=== PATIENT | male | born 1955 | race African-American/Black ===

== ENCOUNTER 2017-07-11 05:14 | Inpatient (IN) ==
--- NOTE | 2017-07-05 13:42 | Order Completion Report ---
See report scanned to EMR
[2017-07-05 13:45] LABS: Basophils # 0.1 10*3/uL (0.0-0.2); Eosinophils # 0.3 10*3/uL (0.0-0.87); Hemoglobin 14.9 GM/DL (14.0-18.0); Immature Granulocytes % 0.3 %; Immature Granulocytes Absolute 0.02 #; Lymphocytes # 1.6 10*3/uL (1.4-4.0); Lymphocytes % 24.8 % (21.2-54.2); Mean Corpuscular HGB Conc 33.1 GM/DL (32-36); Mean Corpuscular Hemoglobin 31 PG (27-34); Mean Corpuscular Volume 93.4 FL (87-102); Mean Platelet Volume 10.5 FL (9.6-12.0); Monocytes # 0.7 10*3/uL (0.11-0.8); Monocytes % 10.5 % (1.7-12.7); Neutrophils # 3.8 10*3/uL (1.4-7.4); Neutrophils % 59.4 % (38.7-73.9); Platelet Count 141 T/CUMM (130-400); Red Blood Count 4.82 MC/CUMM (3.8-5.5); Red Cell Distribution Width 15.2 % (9.3-17.3); White Blood Count 6.3 T/CUMM (4-12)
[2017-07-05 14:34] LABS: Calcium 8.2 MG/DL (8.5-10.1); Osmolality,Calculated 287.4 MOS/KG (273-304); Potassium 4.2 MMOL/L (3.5-5.1)
[2017-07-11] MEDS ORDERED: SODIUM PHOSPHATE ENEMA 133 ML BOTTLE RECTAL ONE ×2 (05:57→05:59)
[2017-07-11] MEDS ORDERED: cefTRIAXone 1,000 MG VIAL ONE (05:58)
[2017-07-11] MEDS ORDERED: ALVIMOPAN 12 MG CAPSULE ONE (05:58)
[2017-07-11] MEDS ORDERED: ALVIMOPAN 12 MG CAPSULE PO ONE (06:00)
[2017-07-11 06:22] LABS: Hematocrit 47.4 VOL% (42.0-52.0)
--- NOTE | 2017-07-11 07:51 | XRay Report ---
Chest, 2 views History is preop respiratory screening with positive TB skin test The heart and vessels are enlarged. Mild hilar fullness is the appearance of vasculature There is mild thickening of fissures There are some minimal curly B lines and interstitial prominence in the lung bases. No confluent infiltrate is seen. There is upper lobe vascular prominence Impression: Cardiomegaly with suspected minimal interstitial edema PROCEDURE INTERPRETED AT [facility] DEPARTMENT OF RADIOLOGY Final Report Signed by: Dr. Rachelle Pizarro
[2017-07-11 08:49] LABS: Apearance,Urine Slightly Hazy (Clear); Bilirubin,Urine Negative (Negative); Blood, Urine Small mg/dL (Negative); Glucose,Urine (UA) 50 mg/dL (Negative); Ketones,Urine Negative (Negative); Mucus,Urine Occasional /LPF (Occasional); Nitrite,Urine Negative (Negative); Protein,Urine 100 MG/DL; RBC,Urine 4 /HPF (0-4); Squamous Epithelial Cell,Urine Occasional /HPF (0-10); Urine Color Yellow (Yellow); Urine Specific Gravity 1.008 (1.001-1.035); Urine Urobilinogen < 2.0 EU/DL (0.2-1.0); WBC,Urine 2 /HPF (0-6)
[2017-07-11] MEDS ORDERED: ONDANSETRON 4 MG/2 ML VIAL IV PRN (09:00)
[2017-07-11] MEDS ORDERED: ACETAMINOPHEN 325 MG TABLET PO PRN (09:00)
[2017-07-11] MEDS ORDERED: BISACODYL 10 MG SUPP RECTAL PRN (09:00)
[2017-07-11 10:43] LABS: Basophils % 0.7 % (0.0-0.8); Eosinophils # 0.3 10*3/uL (0.0-0.87); Eosinophils % 5.1 % (0.00-10.9); Hematocrit 47.5 VOL% (42.0-52.0); Hemoglobin 15.9 GM/DL (14.0-18.0); Immature Granulocytes % 0.4 %; Immature Granulocytes Absolute 0.02 #; Lymphocytes # 1.5 10*3/uL (1.4-4.0); Lymphocytes % 27.3 % (21.2-54.2); Mean Corpuscular HGB Conc 33.5 GM/DL (32-36); Mean Corpuscular Hemoglobin 30 PG (27-34); Mean Corpuscular Volume 90.6 FL (87-102); Mean Platelet Volume 12.3 FL (9.6-12.0); Monocytes # 0.7 10*3/uL (0.11-0.8); Monocytes % 12.7 % (1.7-12.7); Neutrophils # 2.9 10*3/uL (1.4-7.4); Neutrophils % 53.8 % (38.7-73.9); Platelet Count 117 T/CUMM (130-400); Red Blood Count 5.24 MC/CUMM (3.8-5.5); Red Cell Distribution Width 14.6 % (9.3-17.3); White Blood Count 5.5 T/CUMM (4-12)
[2017-07-11] MEDS ORDERED: DEXAMETHASONE 10 MG/1 ML VIAL ONE (12:52)
[2017-07-11] MEDS ORDERED: PROPOFOL 200 MG/20 ML VIAL IV ONE (12:52)
[2017-07-11] MEDS ORDERED: ONDANSETRON 4 MG/2 ML VIAL ONE (12:52)
[2017-07-11] MEDS ORDERED: MIDAZOLAM 2 MG/2 ML VIAL ONE (12:52)
[2017-07-11] MEDS ORDERED: fentaNYL 100 MCG/2 ML VIAL ONE ×2 (12:52)
[2017-07-11] MEDS ORDERED: GLYCOPYRROLATE 0.4 MG/2 ML VIAL ONE (12:52)
--- NOTE | 2017-07-11 12:52 | Operative Note ---
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 We discussed options and he is elected undergo a robotic assisted radical prostatectomy. This procedure was explained at length and in detail. Risks, complications, outcomes, sequelae, prognosis and alternative therapy was discussed. Patient understood this and agreed to proceed. Patient is brought to the operative suite given a general endotracheal anesthetic after placing on the supine operating table. He is then secured to the table with the securing pads. The left arm with the fistula is protected and a O2 sat monitors placed on that arm also. Patient's then prepared and draped in the usual sterile manner. 22 Israeli Barber was inserted in the bladder and left to gravity. About 20 cc in his bladder. Patient was then placed in Trendelenburg position. A formal timeout performed. The robotic ports were marked in left upper quadrant incision is created for the mini gel port. This is carried down through the fascia through the rectus and in the peritoneal cavity. There was some adhesions superior to this incision but there was some small adhesions below and these were taken down sharply. The mini gel port was placed in the wound and a pneumoperitoneum was obtained. Camera was inserted through the GelPort and the intra-abdominal contents were examined. Luckily there was minimal adhesions to the abdominal wall in the pelvis but the left colon is somewhat adherent and loop and I had to take that down. Remainder the ports were put in direct vision. Robot was then docked. I then broke scrub and went to the console. [place] bipolar forceps in the left and monopolar scissors in the right the left colon is then dissected away from its adhesions along with the rectosigmoid. Posterior approach is performed. The cul-de-sac there was some adhesions and they were taken down but an anterior incision is created and the vas deferens were then dissected out then ligated with a Hemoclip and divided. Seminal vesicles were adherent as I suspected but they were dissected out. A window in Denonvilliers's fascia was created. Attention was then directed to creating the bladder flap. Median umbilical ligaments were retracted medially and incision created lateral to this down through the internal ring. The ligaments were then divided and the bladder flap was dropped down in the pelvis. This was done with sharp and blunt dissection the pelvic fascia was incised bilaterally. Puboprostatics were incised. Dorsal vein was controlled with a #1 Vicryl. Attention was directed to the bladder neck. With bunching of the tissue in the midline and light traction on the Barber the junction was identified. This was then incised with cautery initially. Sharp dissection was used to dissect this tissue was difficult at best because of his renal failure. But the bladder was entered at the bladder neck bladder was drained. Posterior bladder neck was incised and the prostate was pulled up with fourth arm. Attempted to create a left nerve sparing as there is cancer on the right but it was too adherent and there is too many blood vessels that wanted to bleed mainly because of his renal failure so I abandoned the nerve sparing. The pedicles were intermittently taken down hemoclipped and divided. Cautery used to dissect out remaining posterior lateral pedicles and the prostate was then sequentially freed up using sharp and blunt dissection. Very adherent posteriorly and there was multiple small vessels that had to be ligated with bipolar cautery. After getting down through most of the prostate to the apex posteriorly attention was directed anteriorly. The dorsal vein was then divided and there was a lot of apical blood vessels which was not surprised. This was then divided cauterized urethra was incised anteriorly the Barber catheter was pulled back the posterior urethra was divided. Remaining attachments were sharply divided and the prostate with seminal vesicles were freed up and then placed in a specimen bag. Bilateral no dissection was then done. The adventitia the external iliac vein is then entered and the suhail packages swept in the obturator fossa. The obturator nerve was identified and kept in view at all times and not injured. These were set as separate specimens. These wanted to use a little bit and so a piece of Surgicel was used to pack in this fossa on both sides. Attention was then directed to anastomosis. A 2-0 Vicryl was used to approximate the posterior urethral plate to the posterior bladder neck. The anastomosis was then performed with a 3 oh sarika suture beginning at the 6 o' clock position outside in on both sides. This was run from the 5:00 to 1:00 and 7:00 to 11:00 positions. Prior to closure a new 22 Israeli silicone Barber was inserted in the bladder. The anastomosis was tied securely. The catheter was irrigated and this was a watertight anastomosis. Pneumoperitoneum was then dropped down to 0 there was no significant bleeding. The patient was then laying in flat position and the robot was undocked. The ports were removed and the mini port was removed. The specimen was removed in its specimen bag. All wounds are irrigated and drained. The assistance port with a mini port was was closed with a running 0 Monocryl. All other wounds were irrigated drained and checked for hemostasis. Then the skin was closed on all wounds with skin clips. Sterile dressings were placed on the wounds. Catheter was left to gravity drainage. Patient tolerated this procedure well was sent to the recovery room in stable condition. All sponge, needle enhancement counts correct 2. Implants: 22 Israeli silicone Barber Anesthesia: GETA Surgeon / Physician: Macho Austin Estimated blood loss: other (150cc) Specimens: other (Prostate with seminal vesicles, bilateral obturator nodes) Condition: stable Disposition: PACU Results - Labs CBC & BMP: 07/11/17 06:12 07/11/17 07:01 Discharge Plan - Discharge Medications No Action NIFEdipine [Nifedipine ER] 90 mg PO DAILY Carvedilol [Coreg] 25 mg PO DAILY - Follow Up or Referral - Forms/Instructions
[2017-07-11] MEDS ORDERED: ALBUTEROL INHALER 8 GM INH ONE (12:53)
[2017-07-11] MEDS ORDERED: SODIUM CHLORIDE 0.9% 250 ML IV ONE (12:53)
[2017-07-11] MEDS ORDERED: CISATRACURIUM 10 MG/5 ML VIAL IV ONE (12:53)
[2017-07-11] MEDS ORDERED: HYDROmorphone PCA 30 MG/30 ML SYRINGE IV ONE (13:15)
[2017-07-11] MEDS: HYDROmorphone PCA 30 MG/30 ML SYRINGE IV SCH (13:17)
--- NOTE | 2017-07-11 18:18 | Urology Progress Note ---
Urology - PN: Subj Interval history: Postoperative check. Patient is awake and alert. Minimal tenderness. He is not having any urine output which is as expected. Vital signs are stable. Patient is stable. Exam - Constitutional Vitals: Period Temp Pulse Resp BP Sys/Mckinley Pulse Ox Last 24 Hr 97.2 F-98.6 F 54-71 12-18 157-175/96-114 97-100 Results - Labs CBC & BMP: 07/11/17 06:12 07/11/17 07:01
--- NOTE | 2017-07-11 18:55 | Anesthesia Post-Op ---
Anesthesia Post OP - Post Ansesthetic Evaluation Patient seen in post op: Yes Resp: within normal limits CV: within normal limits Mental: within normal limits Temp: within normal limits Drbh-Vj-Ochadhnlo: within normal limits Nausea and Vomiting: within normal limits Pain: within normal limits
[2017-07-11] MEDS: DOCUSATE SODIUM 100 MG CAPSULE PO SCH ×2 (19:36→20:09)
[2017-07-12 05:34] LABS: Basophils % 0.4 % (0.0-0.8); Eosinophils % 0.1 % (0.00-10.9); Hematocrit 40.6 VOL% (42.0-52.0); Hemoglobin 13.8 GM/DL (14.0-18.0); Immature Granulocytes % 0.6 %; Immature Granulocytes Absolute 0.06 #; Lymphocytes # 1.5 10*3/uL (1.4-4.0); Lymphocytes % 15.5 % (21.2-54.2); Mean Corpuscular Hemoglobin 31 PG (27-34); Mean Platelet Volume 11.7 FL (9.6-12.0); Monocytes # 1.5 10*3/uL (0.11-0.8); Monocytes % 14.8 % (1.7-12.7); Neutrophils # 6.7 10*3/uL (1.4-7.4); Neutrophils % 68.6 % (38.7-73.9); Platelet Count 143 T/CUMM (130-400); Red Blood Count 4.51 MC/CUMM (3.8-5.5); Red Cell Distribution Width 14.5 % (9.3-17.3); White Blood Count 9.8 T/CUMM (4-12)
[2017-07-12 05:58] LABS: Calcium 7.8 MG/DL (8.5-10.1); Osmolality,Calculated 275.2 MOS/KG (273-304); Potassium 4.9 MMOL/L (3.5-5.1)
[2017-07-12 06:00] LABS: Albumin 3.3 G/DL (3.4-5.0); Calcium 7.9 MG/DL (8.5-10.1); Phosphorous 5.4 MG/DL (2.5-4.9); Potassium 4.9 MMOL/L (3.5-5.1)
[2017-07-12] MEDS: CARVEDILOL 25 MG TABLET PO SCH ×2 (07:50→09:02)
[2017-07-12] MEDS: DOCUSATE SODIUM 100 MG CAPSULE PO SCH ×3 (07:50→21:37)
--- NOTE | 2017-07-12 09:34 | Nephrology History & Physical ---
History of Present Illness Chief complaint: End-stage renal disease, status post prostatectomy History of present illness: Mr. Conklin is a 61 year old male with history of hypertension end-stage renal disease currently dialyzes at the [facility] dialysis unit. The patient is now one day status post prostatectomy. He has continued to do well. No shortness of breath or chest pain. Patient did have a positive PPD. His chest x-ray was unremarkable. At this time continuing to with scheduled hemodialysis for this patient. Home Medications Medication Instructions Recorded Confirmed Type Carvedilol [Coreg] 25 mg PO DAILY 02/24/16 07/11/17 History NIFEdipine [Nifedipine ER] 90 mg PO DAILY 02/24/16 07/11/17 History Allergies Allergy/AdvReac Type Severity Reaction Status Date / Time clonidine Allergy SWELLING Verified 07/11/17 06:10 ALL OVER Review of Systems Constitutional: no anorexia, no chills Cardiovascular: no chest pain at rest, no chest pain with activity Respiratory: no cough, no dyspnea Genitourinary: no difficulty urinating Musculoskeletal: no arthralgias Medical,Surgical,& Family Hx - Medical History Cardio: History of: Hypertension Psychological: No history of: Anxiety Disorders, ADHD, Behavior Problems, Bipolar Disorder, Depression, Previous Suicide Attempt, Psychiatric/Substance Abuse Tx, Schizophrenia, Violent Behavior, Psychiatric Problems Neurology: History of: Cerebrovascular Accident (01/2016) No history of: Seizures HEENT: History of: Eye Problem (GLASSES) Respiratory: History of: Respiratory Problems (FLU VAC- NO; PNEU VAC- NO.) Renal: History of: Dialysis (previously peritoneal, now starting hemodialysis. M ,W,[address]UR[address].) Genitourinary: History of: Prostate Problems (PROSTATE CA.) Other: History of: Cancer (PROSTATE CA) - Surgical History Abdominal Surgeries: Surgical HX of: Colonoscopy (2008) Orthopedic Surgeries: Surgical HX of;: Implanted Devices (LEFT ARM GRAFT.) - Family History Family History: Reports;: Family Heart Disease (2 sisters) - Social History Smoking Status: Never smoker Frequency of Alcohol Use: None Type of Drug Use: None Exam - Nephrology - Vital Signs Vital signs: Vital Signs Temp Pulse Pulse Pulse Resp BP BP 07/12/17 07:50 98.5 F 72 72 18 157/99 157/99 07/12/17 07:20 98.5 F 72 18 161/91 10/12/17 06:35 18 07/12/17 03:35 98 F 70 70 16 168/96 168/96 07/12/17 01:55 16 07/12/17 01:10 150/96 07/12/17 00:05 97.9 F 65 18 177/102 07/11/17 20:00 98.2 F 76 18 170/27 07/11/17 16:00 97.2 F L 70 18 160/97 07/11/17 14:10 97.6 F 58 L 18 162/104 07/11/17 13:45 97.6 F 58 L 18 162/104 07/11/17 13:32 98.6 F 54 L 16 157/103 07/11/17 13:25 54 L 16 168/96 07/11/17 13:15 56 L 16 168/106 07/11/17 13:05 60 16 166/111 07/11/17 13:00 60 14 169/98 07/11/17 12:55 64 12 168/105 07/11/17 12:50 66 14 163/114 07/11/17 12:45 98.2 F 71 18 165/108 Pulse Ox Pulse Ox 07/12/17 07:50 98 92 L 07/12/17 07:20 98 07/12/17 06:35 07/12/17 03:35 95 95 07/12/17 01:55 07/12/17 01:10 07/12/17 00:05 95 07/11/17 20:00 96 07/11/17 16:00 100 07/11/17 14:10 99 07/11/17 13:45 99 07/11/17 13:32 97 07/11/17 13:25 99 07/11/17 13:15 98 07/11/17 13:05 98 07/11/17 13:00 98 07/11/17 12:55 100 07/11/17 12:50 100 07/11/17 12:45 100 - General Appearance General appearance: well-developed, well-nourished EENT: ATNC Neck: supple Respiratory: clear Cardiology: regular rate, regular rhythm Gastrointestinal: normoactive bowel sounds, no tenderness Integumentary: no rash Neurologic: alert and oriented x3 Musculoskeletal: no clubbing Psychiatric: mood/affect appropriate, cooperative Results - Labs CBC & BMP: 07/12/17 04:25 07/12/17 04:25 Assessment and Plan (1) Acute CVA (cerebrovascular accident) Status: Chronic Current Visit: No (2) End stage renal disease on dialysis Problem details: Next routine CHD on Sunday. human resources administrator to HD unit. UF 2-3L as tolerated by hemodynamics. Status: Chronic Current Visit: No (3) Hypertension Status: Acute Current Visit: No (4) Status post prostatectomy Status: Acute Current Visit: Yes
--- NOTE | 2017-07-12 09:39 | Dialysis Note ---
Dialysis Note - Dialysis Note Patient seen on dialysis tolerated the procedure. Blood pressure 150/70. Perivascular regular rate. Lungs clear to auscultation. Abdomen soft.
[2017-07-12] MEDS ORDERED: MEPERIDINE 50 MG/1 ML VIAL IM PRN (11:16)
[2017-07-12] MEDS ORDERED: POLYETHYLENE GLYCOL POWDER 17 GM PACK PO PRN (11:17)
[2017-07-12] MEDS: HYDROmorphone PCA 30 MG/30 ML SYRINGE IV SCH (13:57)
[2017-07-12] MEDS: oxyCODONE/ACETAMINOPHEN 5-325 MG TABLET PO PRN ×2 (15:03→16:38)
--- NOTE | 2017-07-12 17:51 | Urology Progress Note ---
Urology - PN: Subj Interval history: Patient is doing well postop day 1. H&H is 14 and 41. Electrolytes are okay creatinines elevated as expected. Patient underwent dialysis today without difficulty. His abdomen is soft wounds are healing well. Very little urine output is expected. He is ambulating. Tolerating his diet. Patient is stable. Exam - Constitutional Vitals: Period Temp Pulse Resp BP Sys/Mckinley Pulse Ox Last 24 Hr 97.9 F-98.5 F 65-76 16-18 121-177/27-102 92-98 Results - Labs CBC & BMP: 07/12/17 04:25 07/12/17 04:25 Specialty Discharge - Follow Up or Referrals
[2017-07-13 05:30] LABS: Basophils # 0.1 10*3/uL (0.0-0.2); Basophils % 0.5 % (0.0-0.8); Eosinophils # 0.2 10*3/uL (0.0-0.87); Eosinophils % 1.7 % (0.00-10.9); Hematocrit 39.1 VOL% (42.0-52.0); Hemoglobin 13.3 GM/DL (14.0-18.0); Immature Granulocytes % 0.3 %; Immature Granulocytes Absolute 0.03 #; Lymphocytes # 1.8 10*3/uL (1.4-4.0); Lymphocytes % 16.7 % (21.2-54.2); Mean Corpuscular Hemoglobin 31 PG (27-34); Mean Corpuscular Volume 90.9 FL (87-102); Mean Platelet Volume 11.7 FL (9.6-12.0); Monocytes # 1.1 10*3/uL (0.11-0.8); Monocytes % 10.5 % (1.7-12.7); Neutrophils # 7.5 10*3/uL (1.4-7.4); Neutrophils % 70.3 % (38.7-73.9); Platelet Count 128 T/CUMM (130-400); Red Cell Distribution Width 14.7 % (9.3-17.3); White Blood Count 10.6 T/CUMM (4-12)
[2017-07-13 07:48] VITALS: BP 148/83
[2017-07-13] MEDS: CARVEDILOL 25 MG TABLET PO SCH (08:46)
[2017-07-13] MEDS: DOCUSATE SODIUM 100 MG CAPSULE PO SCH (08:46)
--- NOTE | 2017-07-13 09:09 | Dialysis Note ---
Dialysis Note - Dialysis Note Mr. Conklin seen in dialysis. He is alert and in no distress able to lie flat. Plan is to dialyze today and to continue to support with his hemodialysis.
--- NOTE | 2017-07-13 10:55 | Discharge Summary ---
Hospital Course - Hospital Course Hospital Course: This hospitalization included patient admitted for prostatectomy. He had a follow-up chest x-ray that showed clear lung graves. Patient had a history of positive PPD on outpatient again chest x-ray was clear and normal. No fevers or chills. The patient continued to do well throughout his hospitalization. He underwent hemodialysis without event. He has been hemodynamically stable. At this time is reached maximum hospitalization is prepared for discharge. He will do further follow-up with the health department or outpatient basis. - Time spent with patient Time with patient DS: Less than 30 minutes Diagnosis - Discharge Diagnosis (1) Acute CVA (cerebrovascular accident) Status: Chronic (2) End stage renal disease on dialysis Status: Chronic (3) Hypertension Status: Chronic (4) Status post prostatectomy Status: Chronic Specialty Discharge - Follow Up or Referrals Discharge Plan - Discharge Data Disposition: Disch To Home/Self Care Condition at Discharge: Stable Discharge Diet: advance to your usual diet Activity: resume usual activities as tolerated Contact your physician if you experience:: fever over 101 - Discharge Medications New oxyCODONE/ACETAMINOPHEN 5-325 [Percocet 5-325] 1 - 2 tablet PO Q6H PRN tablet PRN Reason: Pain Moderate (4-7) Continue NIFEdipine [Nifedipine ER] 90 mg PO DAILY Carvedilol [Coreg] 25 mg PO DAILY - Follow Up or Referral - Forms/Instructions Instructions: Renal Failure Diet (DC), Chronic Hypertension (GEN), Robot Assisted Laparoscopic Prostatectomy (DC), Anemia (GEN), End-Stage Kidney Disease (GEN) Additional Discharge Instructions: Patient to follow-up with outpatient hemodialysis on Sunday schedule. Exam - Constitutional Vitals: Period Temp Pulse Resp BP Sys/Mckinley Pulse Ox Last 24 Hr 98.0 F-98.9 F 66-83 16-20 121-151/76-94 94-98 General appearance: normal weight - Head Head exam: Present: normal inspection - Eye Eye exam: Present: EOMI Pupils: Present: TANO - Neck Neck exam: Present: normal inspection - Respiratory Respiratory exam: Present: clear to auscultation bilaterally - Cardiovascular Cardiovascular exam: Present: regular rate and rhythm - GI/Abdominal GI/Abdominal exam: Present: normal bowel sounds - Extremities Exam Extremities exam: Present: normal inspection - Neurological Exam Neurological exam: Present: alert, oriented X3, CN II-XII intact - Psychiatric Psychiatric exam: Present: normal affect, normal mood - Skin Skin exam: Present: normal color Discharge Results Labs on day of discharge: Labs from last 24 hours 07/13/17 04:07 WBC 10.6 RBC 4.30 Hgb 13.3 L Hct 39.1 L MCV 90.9 MCH 31 MCHC 34.0 RDW 14.7 Plt Count 128 L MPV 11.7 Neut % (Auto) 70.3 Lymph % (Auto) 16.7 L [place] % (Auto) 10.5 Eos % (Auto) 1.7 Baso % (Auto) 0.5 Neut # (Auto) 7.5 H Lymph # (Auto) 1.8 [place] # (Auto) 1.1 H Eos # (Auto) 0.2 Baso # (Auto) 0.1 Immature Gran % 0.3 Nucleated RBC % 0.0 Immature Gran # 0.03 Nucleated RBCs # 0.00 Immature Plt Fraction 0.0 DS: Provider Date of admission: 07/11/17 05:14 Primary care physician: . No PCP Attending physician on admission: Macho Austin MD Consults: 07/11/17 09:00 Consult to Physician [CONS] Routine Comment: s/p nephrectomy Consulting Provider: Macho Austin When should Consulting Provider be notified: Now Person Notified: Shahnaz Date Notified: 07/11/17 Time Notified: 14:06 Discharging clinician: Wes Bryan Jr., MD
--- NOTE | 2017-07-13 12:18 | Urology Progress Note ---
Urology - PN: Subj Interval history: Patient is presently in dialysis but the nurse will discuss with the in his care and he can go home. He will go home with his catheter. I wrote a prescription for Percocet 5 mg #15 1 every 4-6 hours as needed pain. He may shower. I will see him in 2 weeks. Exam - Constitutional Vitals: Period Temp Pulse Resp BP Sys/Mckinley Pulse Ox Last 24 Hr 98.0 F-98.9 F 66-83 16-20 121-151/76-94 94-98 Results - Labs CBC & BMP: 07/13/17 04:07 07/12/17 04:25 Specialty Discharge - Follow Up or Referrals Follow up with: Macho Austin MD [Physician] - ([address] austin , 1 week for goss removal)
--- NOTE | 2017-07-13 19:15 | Pathology Report from [facility] ---
[facility] [place] ACCESSION # : [id number] PATIENT NAME : Carmen Shafer ORDERING DR : ILA HAYS MD CLINICAL HX: Prostate cancer POST-OP DX: Same SPECIMEN INFO: #1 Right obturator node #2 Left obturator node #3 Prostate #4 Right seminal vesicle GROSS DESCRIPTION: #1 R OBT NODE, CARMEN SHAFER received fresh is a 3.3 x 2.6 cm aggregate of fatty tissue with a 1 cm node submitted in #1.#2 L OBT NODE, CARMEN SHAFER received fresh is a 3.0 x 2.8 cm adipose fragment submitted entirely in cassette #2.#3 CARMEN SHAFER received in formalin is a 4.8 x 5.5 x 3.5 cm, 47 gm prostate. The serosa is shaggy and red-cancino with the right half inked black, the left half blue. Cut surfaces of the prostate are pink-cancino and somewhat nodular with several tiny brown stones noted measuring up to 0.3 cm. Sections: 3A apical margin, 3B base margin, 3C seminal vesicles, 3D-3G right apex to base, 3H-3K left apex to base.#4 R SV CARMEN SHAFER received in formalin is a 4.3 x 1.3 cm seminal vesicle with scheduling representative sections submitted in #4. DIAGNOSIS FOR CARMEN SHAFER: #1-4 PROSTATE, RADICAL PROSTATECTOMY (4.8 x 5.5 x 3.5 cm, 47 gm) W/ OBTURATOR NODES: TYPE: Acinar adenocarcinoma. SITE: Bilateral (both lobes). GRADE: Primary Pattern Grade 4; Secondary Pattern Grade 4; Total Aneesh Score 4 + 4 = 8. ANEESH GRADE GROUP: 4. TUMOR QUANTITATION: Percentage of prostate involved by tumor 15%; Dominant nodule = 14 mm. MARGINS: Uninvolved by invasive carcinoma. EXTRAPROSTATIC EXTENSION: Present (right/posterior, focal). SEMINAL VESICLE INVASION: Present = right; single focus in muscular wall (6 mm in greatest dimension). URINARY BLADDER NECK INVASION: Not identified. TREATMENT EFFECT: No known presurgical therapy. LYMPH-VASCULAR INVASION: Not identified. PERINEURAL INVASION: Present. LYMPH NODES: Number examined = 2 (#1 Rt & #2 Lt obturator); Number involved = 0 (0/2). AJCC (2018) PATHOLOGIC STAGE: IIIB ([id number]) . COLLECTED DATE: 07/11/2017 [facility] REPORT DATE: 07/13/2017 ELECTRONICALLY SIGNED BY: Carmen Richardson M.D. 07/13/2017 - 14:18:18 MTDD
== END 2017-07-13 15:47 | disposition home or self-care (01) | DRG 707 ==
LOC: N.OR 05:14 → N.SDSINP 05:14 → EDSTATUS 07:30 → N.5E 13:45
PROVIDERS: ADMIT Urology; ATTEND Urology